=== PATIENT | male | born 1955 | race American Indian/Alaskan Native ===

== ENCOUNTER 2020-03-15 10:45 | Outpatient (CLI) | payer OTHER ==
--- NOTE | 2020-03-15 12:54 | Ultrasound Report ---
US chest INDICATION / CLINICAL INFORMATION: SCAR CONDITIONS AND FIBROSIS OF SKIN, HYPERTROPHIC SCAR. COMPARISON: None available. FINDINGS: No mass or fluid collection is seen at the sternotomy scar. IMPRESSION: 1. No acute findings. Signer Name: Acosta Mike MD Signed: 03/15/2020 12:50 PM Workstation Name: [id number]
== END 2020-03-15 10:46 | disposition home or self-care (01) ==
LOC: US 10:45
PROVIDERS: ATTEND Surgery
DX: L91.0 Hypertrophic scar (principal); L90.5 Scar conditions and fibrosis of skin
CPT/HCPCS: 76604